=== PATIENT | male | born 1945 | race Caucasian/White ===

== ENCOUNTER 2024-06-12 23:53 | Emergency (ER) | payer BC, MEDICAID, MEDICARE ==
[~2024-06-12] VITALS: Ht 177.8 cm; Wt 75.0 kg
[2024-06-12 23:59] VITALS: TEMP 98.4; O2SAT 96
[2024-06-13 00:39] LABS: BASOPHILS % 0.5 % (0.0-2.0); EOSINOPHILS % 2.7 % (0.0-5.0); HEMATOCRIT. 38.9 % (42.0-52.0); HEMOGLOBIN. 13.2 g/dL (14.0-18.0); LYMPHOCYTES % 14.5 % (20.0-50.0); MEAN CORPUSCULAR HEMOGLOBIN 32.6 pg (28.0-32.0); MEAN CORPUSCULAR VOLUME 95.8 fL (80.0-94.0); MEAN PLATELET VOLUME 8.8 fl (7.4-10.4); MONOCYTES % 7.4 % (2.0-8.0); NEUTROPHILS % 74.9 % (40.0-76.0); PLATELET 229 x1000/uL (130-400); RED BLOOD CELL COUNT 4.06 mill/uL (4.7-6.1); RED CELL DISTRIBUTION WIDTH 13.6 % (11.6-14.6); WHITE BLOOD COUNT 6.8 x1000/uL (4.5-11.0)
[2024-06-13 00:42] LABS: CHLORIDE 103 mEq/L (98-107); POTASSIUM 3.7 mEq/L (3.5-5.1); SODIUM 137 mEq/L (136-145)
[2024-06-13 00:43] LABS: CARBON DIOXIDE 26 mEq/L (21-32)
[2024-06-13 00:44] LABS: CALCIUM 8.9 mg/dL (8.7-10.4)
[2024-06-13 00:48] LABS: CREATININE 0.9 mg/dL (0.6-1.3); GLUCOSE 111 mg/dL (70-105); UREA NITROGEN BLOOD 17 mg/dL (9-23)
[2024-06-13 00:54] LABS: TROPONIN I HIGH SENSITIVITY < 4 ng/L (3.0-53)
[2024-06-13 03:40] VITALS: BP 134/64; PULSE 74; RESP 21
== END 2024-06-13 03:52 | disposition home or self-care (01) ==
LOC: ER 23:53
DX: R55 Syncope and collapse (principal); R32 Unspecified urinary incontinence; I10 Essential (primary) hypertension; F12.10 Cannabis abuse, uncomplicated; Z86.73 Personal history of transient ischemic attack (TIA), and cerebral infarction without residual deficits
CPT/HCPCS: 36415; 71045; 80048; 83880; 84484; 85025; 93005; 99285